=== PATIENT | female | born 1970 | race Asian ===

== ENCOUNTER 2022-10-17 11:31 | Emergency (ER) | payer OTHER ==
[~2022-10-17] VITALS: Ht 160 cm; Wt 44.5 kg
== END 2022-10-17 17:14 | disposition home or self-care (01) ==
LOC: ER 11:31
DX: S80.02XA Contusion of left knee, initial encounter (principal); X58.XXXA Exposure to other specified factors, initial encounter; Y93.9 Activity, unspecified; Y92.9 Unspecified place or not applicable; Y99.9 Unspecified external cause status